=== PATIENT | female | born 1950 ===

== ENCOUNTER 2020-12-07 09:46 | Day surgery (SDC) | payer OTHER ==
[~2020-12-07 09:46] MED LIST: ATORVASTATIN CA20 MG PO; BENAZEPRIL HCL5 MG PO; MAGNESIUM500 MG PO; MIRALAX17 GM PO; OMEPRAZOLE40 MG PO; VERELAN120 MG PO; VYTORIN 10-101 EACH PO
== END 2020-12-07 19:25 | disposition home or self-care (01) ==
LOC: CIR.AMB 09:46
PROVIDERS: ATTEND Colon & Rectal Surgery
DX: D12.0 Benign neoplasm of cecum (principal); K56.50 Intestinal adhesions [bands], unspecified as to partial versus complete obstruction; K64.8 Other hemorrhoids; Z20.822 Contact with and (suspected) exposure to COVID-19